=== PATIENT | female | born 1970 | race Caucasian/White ===

== ENCOUNTER 2018-02-25 12:02 | Inpatient (IN) | payer OTHER ==
[2018-02-25] MEDS ORDERED: LOPERAMIDE HCL 2 MG CAPSULE PO PRN (12:15)
[2018-02-25] MEDS ORDERED: MAGNESIUM CITRATE 300 ML BOTTLE PO PRN (12:15)
[2018-02-25] MEDS ORDERED: P-EPHED 60MG/TRIPROLIDI 2.5MG TABLET PO PRN (12:15)
[2018-02-25] MEDS ORDERED: ACETAMINOPHEN 325 MG TABLET (FP) PO PRN (12:15)
[2018-02-25] MEDS ORDERED: NICOTINE 14 MG/24 HOURS TOPICAL PATCH TD PRN (12:15)
[2018-02-25] MEDS ORDERED: MENTHOL/PHENOL 1 EACH UD MM PRN (12:15)
[2018-02-25] MEDS ORDERED: guaiFENesin/D-METHORPHAN HB 10 ML UNIT-DOSE CUPS PO PRN (12:15)
[2018-02-25] MEDS ORDERED: MAG HYDROX/AL HYDROX/SIMETH 30 ML UNIT-DOSE CUP PO PRN (12:15)
[2018-02-25] MEDS ORDERED: MAGNESIUM HYDROX 2400MG/30ML ORAL SUSPENSION 30 ML CUP PO PRN (12:15)
--- NOTE | 2018-02-25 12:15 | HP ---
[facility] Rehab Assess/Revision - Admission History Admitted to Rehab from: [facility] Date of Admission to Rehab: 02/25/18 - Findings Detox History & Physical reviewed: Yes Concur with findings: Yes Comments/Additional Findings: transferred from detox to rehab admission as per protocol Inpatient Rehab Admission - Initial Determination Are CD services needed?: Yes Free of communicable disease: Yes Not in need of hospitalization: Yes - Rehab Admission Criteria Previous failed treatment: Yes Poor recovery environment: Yes Comorbidities: Yes Lacks judgement: No Patient is meeting Inpatient Rehab admission criteria:: Yes
[2018-02-25] MEDS ORDERED: PT OWN MED DRAWER 7, Y5N ONE (14:09)
--- NOTE | 2018-02-25 14:35 | PN ---
[facility] Progress Note Note: Requested by nursing staff to order medication for newly admitted patient from detox. Medication reconciliation done. Lexapro 20 mg po daily, Seroquel 100 mg po HS and Trazadone 100 mg po HS ordered for patient
[2018-02-25] MEDS: THIAMINE HCL 100 MG TABLET (FP) PO SCH (21:53)
[2018-02-25] MEDS: QUEtiapine FUMARATE 100 MG TABLET (FP) PO SCH (21:53)
[2018-02-25] MEDS: IBUPROFEN 400 MG TABLET (FP) PO PRN (21:54)
[2018-02-25] MEDS: traZODone HCL 100 MG TABLET (FP) PO SCH (21:54)
[2018-02-26] MEDS: ALBUTEROL SO4 8 GM HFA INHALER IH PRN (06:41)
[2018-02-26] MEDS ORDERED: PT OWN MED DRAWER 7, Y5N ONE (08:53)
[2018-02-26] MEDS: PRENATAL VITAMINS W/ FOLIC ACID TABLET (FP) PO SCH (09:33)
[2018-02-26] MEDS: ESCITALOPRAM OXALATE 20 MG TABLET (FP) PO SCH (09:33)
[2018-02-26] MEDS: IBUPROFEN 400 MG TABLET (FP) PO PRN ×2 (09:34→21:51)
[2018-02-26] MEDS: PSYLLIUM 5.85 GM PACKET PO PRN (09:35)
--- NOTE | 2018-02-26 10:46 | HP ---
Psychiatrist Admission - Data Date of interview: 02/26/18 Admission source: [address] [place] [address] Identifying data: This is the first admission to [address] [place] [address] for this 48 years old female mother of 6 (kinds are grown,just little kids reside with relatives).Patient is undomiciled,supported by [employer]amps. Medical History: Significant for BA,Colon polyps removal,Tubal ligation 8 yo. Psychiatric History: Patient reports first contact with psychiatrist was about 5 years ago to address depression,anxiety,insomnia,mood instability,drug use.She was seen by psychiatrist in [facility] in [facility].Patient was dx with Mood disorder.She was started on Seroquel 100 mg po hs,Clonazepam 0,5 mg po prn, Lexapro 20 mg po daily,Trileptal 300 mg po bid and Trazodone 100 mg po hs.Patient is still under care of psychiatrist at the same facility. Physical/Sexual Abuse/Trauma History: not willing to discuss Vital Signs: Vital Signs - 24 hr 02/25/18 02/26/18 02/26/18 12:24 00:49 07:09 Temperature 97.5 F L 97.3 F L Pulse Rate 75 81 Respiratory 18 16 16 Rate Blood Pressure 106/75 134/90 Allergies/Adverse Reactions: Allergies Allergy/AdvReac Type Severity Reaction Status Date / Time No Known Allergies Allergy Verified 02/19/18 21:33 Date of last physical exam: 02/19/18 Concur with the findings of this exam: Yes - Substance Abuse/Tx History Hx Alcohol Use: Yes (dinking since 16 yo,2 liter of vodka,beer) Hx Substance Use: Yes (marijuana since 16 yo,crack since 31 yo,$30 daily,heroin since 31 yo,4 bags) Substance Use Type: Alcohol, Cocaine, Heroin, Marijuana Hx Substance Use Treatment: Yes (this is her first inpatient rehab,no clean time ) Mental Status Exam - Mental Status Exam Alert and Oriented to: Time, Place, Person Cognitive Function: Grossly Intact Patient Appearance: Unkempt Mood: Anxious, Irritable Affect: Mood Congruent, Labile Patient Behavior: Restless, Cooperative Speech Pattern: Clear Voice Loudness: Normal Thought Process: Goal Oriented Thought Disorder: Not Present Hallucinations: Denies Suicidal Ideation: Denies Homicidal Ideation: Denies Insight/Judgement: Fair Sleep: Fair Appetite: Fair Muscle strength/Tone: Normal Gait/Station: Normal Psychiatric Findings - Problem List ([place] 1, 2,3) (1) Nicotine dependence Current Visit: Yes Status: Chronic Qualifiers: Nicotine product type: cigarettes Substance use status: in withdrawal Qualified Code(s): F17.213 - Nicotine dependence, cigarettes, with withdrawal (2) Asthma Current Visit: Yes Status: Chronic Qualifiers: Asthma severity: mild Asthma persistence: intermittent Asthma complication type: unspecified Qualified Code(s): J45.20 - Mild intermittent asthma, uncomplicated (3) IBS (irritable bowel syndrome) Current Visit: Yes Status: Chronic (4) Substance induced mood disorder Current Visit: Yes Status: Suspected (5) Substance-induced sleep disorder Current Visit: Yes Status: Suspected (6) Alcohol dependence Current Visit: Yes Status: Chronic (7) Cocaine dependence Current Visit: Yes Status: Chronic (8) Opioid dependence Current Visit: Yes Status: Chronic (9) Cannabis dependence Current Visit: Yes Status: Chronic (10) Bronchial asthma Current Visit: Yes Status: Chronic (11) Bipolar disorder Current Visit: Yes Status: Chronic - Initial Treatment Plan Initial Treatment Plan: Continue current medications.
[2018-02-26] MEDS ORDERED: hydrOXYzine PAMOATE 50 MG CAPSULE (FP) PO PRN (10:58)
[2018-02-26] MEDS ORDERED: hydrOXYzine PAMOATE 50 MG CAPSULE (FP) PO SCH (11:30)
[2018-02-26] MEDS: OXcarbazepine 300 MG TABLET (UD) PO SCH ×2 (12:05→21:52)
[2018-02-26] MEDS: hydrOXYzine PAMOATE 50 MG CAPSULE (FP) PO SCH ×4 (12:05→21:52)
[2018-02-26] MEDS: THIAMINE HCL 100 MG TABLET (FP) PO SCH (21:52)
[2018-02-26] MEDS: QUEtiapine FUMARATE 100 MG TABLET (FP) PO SCH (21:52)
[2018-02-26] MEDS: traZODone HCL 100 MG TABLET (FP) PO SCH (21:52)
[2018-02-26] MEDS: MELATONIN 5 MG TABLETS PO PRN (21:53)
[2018-02-27] MEDS: IBUPROFEN 400 MG TABLET (FP) PO PRN ×2 (10:22→21:53)
[2018-02-27] MEDS: ESCITALOPRAM OXALATE 20 MG TABLET (FP) PO SCH (10:22)
[2018-02-27] MEDS: OXcarbazepine 300 MG TABLET (UD) PO SCH ×2 (10:23→21:51)
[2018-02-27] MEDS: PRENATAL VITAMINS W/ FOLIC ACID TABLET (FP) PO SCH (10:23)
[2018-02-27] MEDS: NICOTINE 14 MG/24 HOURS TOPICAL PATCH TD SCH (10:23)
[2018-02-27] MEDS: PSYLLIUM 5.85 GM PACKET PO PRN (10:24)
[2018-02-27] MEDS: hydrOXYzine PAMOATE 50 MG CAPSULE (FP) PO SCH ×4 (10:24→21:51)
--- NOTE | 2018-02-27 13:53 | PN ---
S Progress Note Note: Vital Signs Temperature 97.7 F 02/27/18 07:21 Pulse Rate 75 02/27/18 07:21 Respiratory Rate 16 02/27/18 07:21 Blood Pressure 113/80 02/27/18 07:21 O2 Sat by Pulse Oximetry (%) Patient reports hx of BS with chronic constipation, requested Citroma QD along with myralax to which assist with moving her bowels. Patient Aox3, no distress, anxious no adventitious breath sounds bs x4 non-tender non-distended full rom ambulating in the unit chronic constipation d/c citroma lactulose prn colace tid increase fiber continue to monitor
[2018-02-27] MEDS: COLLOIDAL OATMEAL 1 BAR EACH TP PRN (14:06)
[2018-02-27] MEDS: DOCUSATE SODIUM 100 MG CAPSULE (FP) PO SCH ×2 (14:06→21:52)
[2018-02-27] MEDS: LACTULOSE 20 GM/30 ML UDC (FOR ORAL USE ONLY) PO PRN ×2 (14:06→19:06)
[2018-02-27] MEDS: THIAMINE HCL 100 MG TABLET (FP) PO SCH (21:51)
[2018-02-27] MEDS: traZODone HCL 100 MG TABLET (FP) PO SCH (21:52)
[2018-02-27] MEDS: QUEtiapine FUMARATE 100 MG TABLET (FP) PO SCH (21:52)
[2018-02-27] MEDS: MELATONIN 5 MG TABLETS PO PRN (21:52)
[2018-02-28] MEDS: DOCUSATE SODIUM 100 MG CAPSULE (FP) PO SCH ×3 (06:21→21:46)
[2018-02-28] MEDS: LACTULOSE 20 GM/30 ML UDC (FOR ORAL USE ONLY) PO PRN ×3 (06:22→22:24)
[2018-02-28] MEDS: NICOTINE 14 MG/24 HOURS TOPICAL PATCH TD SCH (10:39)
[2018-02-28] MEDS: PRENATAL VITAMINS W/ FOLIC ACID TABLET (FP) PO SCH (10:40)
[2018-02-28] MEDS: PSYLLIUM 5.85 GM PACKET PO PRN ×2 (10:40→21:49)
[2018-02-28] MEDS: OXcarbazepine 300 MG TABLET (UD) PO SCH ×2 (10:41→21:46)
[2018-02-28] MEDS: ESCITALOPRAM OXALATE 20 MG TABLET (FP) PO SCH (10:41)
[2018-02-28] MEDS: hydrOXYzine PAMOATE 50 MG CAPSULE (FP) PO SCH ×4 (10:41→21:46)
[2018-02-28] MEDS: IBUPROFEN 400 MG TABLET (FP) PO PRN ×2 (10:43→21:48)
[2018-02-28] MEDS: THIAMINE HCL 100 MG TABLET (FP) PO SCH (21:46)
[2018-02-28] MEDS: traZODone HCL 100 MG TABLET (FP) PO SCH (21:46)
[2018-02-28] MEDS: QUEtiapine FUMARATE 100 MG TABLET (FP) PO SCH (21:48)
[2018-02-28] MEDS: MELATONIN 5 MG TABLETS PO PRN (21:48)
[2018-03-01] MEDS: DOCUSATE SODIUM 100 MG CAPSULE (FP) PO SCH ×3 (06:51→21:30)
[2018-03-01] MEDS: NICOTINE 14 MG/24 HOURS TOPICAL PATCH TD SCH (09:55)
[2018-03-01] MEDS: hydrOXYzine PAMOATE 50 MG CAPSULE (FP) PO SCH ×4 (09:56→21:29)
[2018-03-01] MEDS: ESCITALOPRAM OXALATE 20 MG TABLET (FP) PO SCH (09:56)
[2018-03-01] MEDS: PSYLLIUM 5.85 GM PACKET PO PRN ×2 (09:56→17:15)
[2018-03-01] MEDS: PRENATAL VITAMINS W/ FOLIC ACID TABLET (FP) PO SCH (09:56)
[2018-03-01] MEDS: OXcarbazepine 300 MG TABLET (UD) PO SCH ×2 (09:56→21:31)
[2018-03-01] MEDS: LACTULOSE 20 GM/30 ML UDC (FOR ORAL USE ONLY) PO PRN ×2 (09:59→17:13)
[2018-03-01] MEDS: IBUPROFEN 400 MG TABLET (FP) PO PRN ×2 (13:46→21:30)
[2018-03-01] MEDS: NICOTINE POLACRILEX 2 MG GUM BUC PRN (18:03)
[2018-03-01] MEDS: QUEtiapine FUMARATE 100 MG TABLET (FP) PO SCH (21:30)
[2018-03-01] MEDS: traZODone HCL 100 MG TABLET (FP) PO SCH (21:30)
[2018-03-01] MEDS: THIAMINE HCL 100 MG TABLET (FP) PO SCH (21:32)
[2018-03-02] MEDS: DOCUSATE SODIUM 100 MG CAPSULE (FP) PO SCH ×3 (06:35→21:45)
[2018-03-02] MEDS: ALBUTEROL SO4 8 GM HFA INHALER IH PRN (06:44)
[2018-03-02] MEDS: PRENATAL VITAMINS W/ FOLIC ACID TABLET (FP) PO SCH (10:08)
[2018-03-02] MEDS: OXcarbazepine 300 MG TABLET (UD) PO SCH ×2 (10:08→21:46)
[2018-03-02] MEDS: ESCITALOPRAM OXALATE 20 MG TABLET (FP) PO SCH (10:08)
[2018-03-02] MEDS: hydrOXYzine PAMOATE 50 MG CAPSULE (FP) PO SCH ×4 (10:08→21:45)
[2018-03-02] MEDS: NICOTINE 14 MG/24 HOURS TOPICAL PATCH TD SCH (10:08)
[2018-03-02] MEDS: LACTULOSE 20 GM/30 ML UDC (FOR ORAL USE ONLY) PO PRN ×2 (10:10→17:48)
[2018-03-02] MEDS: PSYLLIUM 5.85 GM PACKET PO PRN ×2 (10:10→17:49)
[2018-03-02] MEDS: IBUPROFEN 400 MG TABLET (FP) PO PRN ×2 (10:11→17:48)
--- NOTE | 2018-03-02 13:46 | PN ---
S Progress Note (SOAP) Subjective: c/o foul smelling vaginal discharge started about 3 days ago. Vaginal area is itchy. C/o chronic constipation and requesting citrate of magnesium. States hit toe a few days ago and now notices a spot on toe. Objective: Abd S/NT/BS+. Denies burning upon urination. Vital Signs 03/02/18 07:31 Temperature 97.4 F L Pulse Rate 64 Respiratory 18 Rate Blood Pressure 121/84 Brownish area on (R) great toe, oval 2.5 cm x 8 mm. Looks like results of pinched skin. No open area. Assessment: Constipation Bacterial vaginitis Bruise (R) great toe. Plan: Citrate magnesium Monistst Vag supp Continue rehab
[2018-03-02] MEDS: NICOTINE POLACRILEX 2 MG GUM BUC PRN (13:55)
[2018-03-02] MEDS: MAGNESIUM CITRATE 300 ML BOTTLE PO PRN (15:07)
[2018-03-02] MEDS: traZODone HCL 100 MG TABLET (FP) PO SCH (21:45)
[2018-03-02] MEDS: MELATONIN 5 MG TABLETS PO PRN (21:45)
[2018-03-02] MEDS: THIAMINE HCL 100 MG TABLET (FP) PO SCH (21:45)
[2018-03-02] MEDS: QUEtiapine FUMARATE 100 MG TABLET (FP) PO SCH (21:46)
[2018-03-02] MEDS: MICONAZOLE NITRATE 2% VAGINAL CREAM 45 GM TUBE VG SCH (21:48)
[2018-03-03] MEDS: DOCUSATE SODIUM 100 MG CAPSULE (FP) PO SCH ×3 (06:37→21:38)
[2018-03-03] MEDS: LACTULOSE 20 GM/30 ML UDC (FOR ORAL USE ONLY) PO PRN ×3 (06:37→21:37)
[2018-03-03] MEDS: PSYLLIUM 5.85 GM PACKET PO PRN ×3 (06:40→21:38)
[2018-03-03] MEDS: ESCITALOPRAM OXALATE 20 MG TABLET (FP) PO SCH (10:28)
[2018-03-03] MEDS: NICOTINE 14 MG/24 HOURS TOPICAL PATCH TD SCH (10:28)
[2018-03-03] MEDS: PRENATAL VITAMINS W/ FOLIC ACID TABLET (FP) PO SCH (10:29)
[2018-03-03] MEDS: hydrOXYzine PAMOATE 50 MG CAPSULE (FP) PO SCH ×4 (10:29→21:45)
[2018-03-03] MEDS: OXcarbazepine 300 MG TABLET (UD) PO SCH ×2 (10:29→21:37)
[2018-03-03] MEDS: IBUPROFEN 400 MG TABLET (FP) PO PRN ×2 (10:31→21:43)
[2018-03-03] MEDS: NICOTINE POLACRILEX 2 MG GUM BUC PRN ×3 (10:33→18:13)
[2018-03-03] MEDS: ALBUTEROL SO4 8 GM HFA INHALER IH PRN (10:33)
[2018-03-03] MEDS: traZODone HCL 100 MG TABLET (FP) PO SCH (21:37)
[2018-03-03] MEDS: QUEtiapine FUMARATE 100 MG TABLET (FP) PO SCH (21:38)
[2018-03-03] MEDS: THIAMINE HCL 100 MG TABLET (FP) PO SCH (21:38)
[2018-03-03] MEDS: COLLOIDAL OATMEAL 1 BAR EACH TP PRN (21:40)
[2018-03-03] MEDS: MICONAZOLE NITRATE 2% VAGINAL CREAM 45 GM TUBE VG SCH (21:41)
[2018-03-03] MEDS: MELATONIN 5 MG TABLETS PO PRN (21:41)
[2018-03-03] MEDS ORDERED: PT OWN MED DRAWER 7, Y5N ONE (21:43)
[2018-03-04] MEDS: DOCUSATE SODIUM 100 MG CAPSULE (FP) PO SCH ×3 (06:25→21:37)
[2018-03-04] MEDS: ALBUTEROL SO4 8 GM HFA INHALER IH PRN ×2 (06:26→14:58)
[2018-03-04] MEDS ORDERED: PT OWN MED DRAWER 7, Y5N ONE ×2 (06:26→23:17)
[2018-03-04] MEDS: PSYLLIUM 5.85 GM PACKET PO PRN (10:07)
[2018-03-04] MEDS: LACTULOSE 20 GM/30 ML UDC (FOR ORAL USE ONLY) PO PRN (10:07)
[2018-03-04] MEDS: ESCITALOPRAM OXALATE 20 MG TABLET (FP) PO SCH (10:08)
[2018-03-04] MEDS: OXcarbazepine 300 MG TABLET (UD) PO SCH ×2 (10:08→21:38)
[2018-03-04] MEDS: NICOTINE 14 MG/24 HOURS TOPICAL PATCH TD SCH (10:08)
[2018-03-04] MEDS: hydrOXYzine PAMOATE 50 MG CAPSULE (FP) PO SCH ×4 (10:08→21:38)
[2018-03-04] MEDS: PRENATAL VITAMINS W/ FOLIC ACID TABLET (FP) PO SCH (10:09)
[2018-03-04] MEDS: NICOTINE POLACRILEX 2 MG GUM BUC PRN ×3 (10:10→21:40)
--- NOTE | 2018-03-04 14:21 | PN ---
[facility] Progress Note Note: PATIENT SEEN FOR C/O LEFT SHOULDER DISCOMFORT. CHRONIC DUE TO OLD SPRAIN. PATIENT HAS FULL ROM OF LEFT ARM. +TACTILE TENDERNESS. NO SWELLING OR REDNESS NOTED. A/P: LEFT SHOULDER DISCOMFORT: WILL ORDER LIDOCAINE PATCH DAILY AND CONTINUE TO MONITOR CLINICALLY. Vital Signs Temperature 97.6 F 03/04/18 06:45 Pulse Rate 61 03/04/18 06:45 Respiratory Rate 18 03/04/18 06:45 Blood Pressure 101/68 03/04/18 06:45 O2 Sat by Pulse Oximetry (%)
[2018-03-04] MEDS: LIDOCAINE 5% TOPICAL PATCH TP SCH (14:33)
[2018-03-04] MEDS: MAGNESIUM CITRATE 300 ML BOTTLE PO PRN (17:48)
[2018-03-04] MEDS: IBUPROFEN 400 MG TABLET (FP) PO PRN (17:49)
[2018-03-04] MEDS: THIAMINE HCL 100 MG TABLET (FP) PO SCH (21:37)
[2018-03-04] MEDS: traZODone HCL 100 MG TABLET (FP) PO SCH (21:37)
[2018-03-04] MEDS: QUEtiapine FUMARATE 100 MG TABLET (FP) PO SCH (21:37)
[2018-03-04] MEDS: MICONAZOLE NITRATE 2% VAGINAL CREAM 45 GM TUBE VG SCH (21:38)
[2018-03-04] MEDS: LIDOCAINE PATCH REMOVAL MC SCH (21:38)
[2018-03-04] MEDS: MELATONIN 5 MG TABLETS PO PRN (21:39)
[2018-03-05] MEDS: DOCUSATE SODIUM 100 MG CAPSULE (FP) PO SCH ×3 (06:52→21:31)
[2018-03-05] MEDS: ALBUTEROL SO4 8 GM HFA INHALER IH PRN (06:52)
[2018-03-05] MEDS: LIDOCAINE 5% TOPICAL PATCH TP SCH (10:09)
[2018-03-05] MEDS: OXcarbazepine 300 MG TABLET (UD) PO SCH ×2 (10:09→21:33)
[2018-03-05] MEDS: ESCITALOPRAM OXALATE 20 MG TABLET (FP) PO SCH (10:09)
[2018-03-05] MEDS: NICOTINE 14 MG/24 HOURS TOPICAL PATCH TD SCH (10:09)
[2018-03-05] MEDS: hydrOXYzine PAMOATE 50 MG CAPSULE (FP) PO SCH ×4 (10:09→21:33)
[2018-03-05] MEDS: PRENATAL VITAMINS W/ FOLIC ACID TABLET (FP) PO SCH (10:09)
[2018-03-05] MEDS: PSYLLIUM 5.85 GM PACKET PO PRN ×2 (10:12→21:33)
[2018-03-05] MEDS: NICOTINE POLACRILEX 2 MG GUM BUC PRN ×4 (10:12→21:34)
[2018-03-05] MEDS: IBUPROFEN 400 MG TABLET (FP) PO PRN (10:13)
[2018-03-05] MEDS: LACTULOSE 20 GM/30 ML UDC (FOR ORAL USE ONLY) PO PRN ×2 (10:13→21:33)
--- NOTE | 2018-03-05 16:16 | PN ---
S Progress Note Note: Vital Signs Temperature 97.6 F 03/05/18 07:30 Pulse Rate 60 03/05/18 07:30 Respiratory Rate 18 03/05/18 07:30 Blood Pressure 125/84 03/05/18 07:30 O2 Sat by Pulse Oximetry (%) Patient reports she cut her left big toe while shaving. Patient denies any pain. Patient Aox3 no distress no adventitious breath sounds full ROM + superficial abrasions 1cm x 1 cm on the left big toe, no drainage present abrasion TP bacitracin keep area clean and dry continue to monitor
[2018-03-05] MEDS ORDERED: BACITRACIN 0.9 GM PACKET TP ONE (17:15)
[2018-03-05] MEDS ORDERED: PT OWN MED DRAWER 7, Y5N ONE ×2 (18:37→22:53)
[2018-03-05] MEDS: QUEtiapine FUMARATE 100 MG TABLET (FP) PO SCH (21:32)
[2018-03-05] MEDS: MICONAZOLE NITRATE 2% VAGINAL CREAM 45 GM TUBE VG SCH (21:32)
[2018-03-05] MEDS: LIDOCAINE PATCH REMOVAL MC SCH (21:32)
[2018-03-05] MEDS: traZODone HCL 100 MG TABLET (FP) PO SCH (21:32)
[2018-03-05] MEDS: THIAMINE HCL 100 MG TABLET (FP) PO SCH (21:33)
[2018-03-06] MEDS: DOCUSATE SODIUM 100 MG CAPSULE (FP) PO SCH ×3 (06:50→21:31)
[2018-03-06] MEDS: ALBUTEROL SO4 8 GM HFA INHALER IH PRN (06:51)
[2018-03-06] MEDS: NICOTINE 14 MG/24 HOURS TOPICAL PATCH TD SCH (10:00)
[2018-03-06] MEDS: LIDOCAINE 5% TOPICAL PATCH TP SCH (10:00)
[2018-03-06] MEDS: PRENATAL VITAMINS W/ FOLIC ACID TABLET (FP) PO SCH (10:00)
[2018-03-06] MEDS: ESCITALOPRAM OXALATE 20 MG TABLET (FP) PO SCH (10:00)
[2018-03-06] MEDS: OXcarbazepine 300 MG TABLET (UD) PO SCH ×2 (10:01→21:30)
[2018-03-06] MEDS: hydrOXYzine PAMOATE 50 MG CAPSULE (FP) PO SCH ×4 (10:01→21:30)
[2018-03-06] MEDS: IBUPROFEN 400 MG TABLET (FP) PO PRN ×2 (10:01→17:56)
[2018-03-06] MEDS: LACTULOSE 20 GM/30 ML UDC (FOR ORAL USE ONLY) PO PRN ×2 (10:02→21:31)
[2018-03-06] MEDS: PSYLLIUM 5.85 GM PACKET PO PRN (10:02)
[2018-03-06] MEDS: NICOTINE POLACRILEX 2 MG GUM BUC PRN ×3 (10:03→21:30)
[2018-03-06] MEDS: QUEtiapine FUMARATE 100 MG TABLET (FP) PO SCH (21:31)
[2018-03-06] MEDS: traZODone HCL 100 MG TABLET (FP) PO SCH (21:31)
[2018-03-06] MEDS: THIAMINE HCL 100 MG TABLET (FP) PO SCH (21:31)
[2018-03-06] MEDS: LIDOCAINE PATCH REMOVAL MC SCH (21:31)
[2018-03-06] MEDS: MICONAZOLE NITRATE 2% VAGINAL CREAM 45 GM TUBE VG SCH (21:34)
[2018-03-06] MEDS ORDERED: PT OWN MED DRAWER 7, Y5N ONE (21:35)
[2018-03-06] MEDS: COLLOIDAL OATMEAL 1 BAR EACH TP PRN (21:43)
[2018-03-07] MEDS: DOCUSATE SODIUM 100 MG CAPSULE (FP) PO SCH ×3 (06:35→21:40)
[2018-03-07] MEDS: PRENATAL VITAMINS W/ FOLIC ACID TABLET (FP) PO SCH (10:01)
[2018-03-07] MEDS: hydrOXYzine PAMOATE 50 MG CAPSULE (FP) PO SCH ×4 (10:07→21:39)
[2018-03-07] MEDS: OXcarbazepine 300 MG TABLET (UD) PO SCH ×2 (10:07→21:39)
[2018-03-07] MEDS: ESCITALOPRAM OXALATE 20 MG TABLET (FP) PO SCH (10:07)
[2018-03-07] MEDS: NICOTINE 14 MG/24 HOURS TOPICAL PATCH TD SCH (10:08)
[2018-03-07] MEDS: LIDOCAINE 5% TOPICAL PATCH TP SCH (10:08)
[2018-03-07] MEDS: IBUPROFEN 400 MG TABLET (FP) PO PRN ×2 (10:09→21:39)
[2018-03-07] MEDS: NICOTINE POLACRILEX 2 MG GUM BUC PRN ×2 (10:13→17:04)
[2018-03-07] MEDS: LACTULOSE 20 GM/30 ML UDC (FOR ORAL USE ONLY) PO PRN ×2 (12:04→17:03)
[2018-03-07] MEDS: PSYLLIUM 5.85 GM PACKET PO PRN ×2 (12:06→17:06)
[2018-03-07] MEDS: ALBUTEROL SO4 8 GM HFA INHALER IH PRN (17:07)
[2018-03-07] MEDS ORDERED: PT OWN MED DRAWER 7, Y5N ONE (21:35)
[2018-03-07] MEDS: QUEtiapine FUMARATE 100 MG TABLET (FP) PO SCH (21:39)
[2018-03-07] MEDS: traZODone HCL 100 MG TABLET (FP) PO SCH (21:39)
[2018-03-07] MEDS: MICONAZOLE NITRATE 2% VAGINAL CREAM 45 GM TUBE VG SCH (21:39)
[2018-03-07] MEDS: MELATONIN 5 MG TABLETS PO PRN (21:40)
[2018-03-07] MEDS: LIDOCAINE PATCH REMOVAL MC SCH (21:40)
[2018-03-07] MEDS: THIAMINE HCL 100 MG TABLET (FP) PO SCH (21:40)
[2018-03-08] MEDS: DOCUSATE SODIUM 100 MG CAPSULE (FP) PO SCH ×3 (06:56→21:10)
[2018-03-08] MEDS: OXcarbazepine 300 MG TABLET (UD) PO SCH ×2 (10:12→21:10)
[2018-03-08] MEDS: PRENATAL VITAMINS W/ FOLIC ACID TABLET (FP) PO SCH (10:12)
[2018-03-08] MEDS: ESCITALOPRAM OXALATE 20 MG TABLET (FP) PO SCH (10:12)
[2018-03-08] MEDS: LIDOCAINE 5% TOPICAL PATCH TP SCH (10:12)
[2018-03-08] MEDS: hydrOXYzine PAMOATE 50 MG CAPSULE (FP) PO SCH ×4 (10:12→21:10)
[2018-03-08] MEDS: NICOTINE 14 MG/24 HOURS TOPICAL PATCH TD SCH (10:12)
[2018-03-08] MEDS: IBUPROFEN 400 MG TABLET (FP) PO PRN ×2 (10:13→17:41)
[2018-03-08] MEDS: LACTULOSE 20 GM/30 ML UDC (FOR ORAL USE ONLY) PO PRN ×2 (10:15→17:41)
[2018-03-08] MEDS: ALBUTEROL SO4 8 GM HFA INHALER IH PRN ×2 (10:16→21:12)
[2018-03-08] MEDS: PSYLLIUM 5.85 GM PACKET PO PRN ×2 (10:16→13:47)
[2018-03-08] MEDS: traZODone HCL 100 MG TABLET (FP) PO SCH (21:10)
[2018-03-08] MEDS: MELATONIN 5 MG TABLETS PO PRN (21:10)
[2018-03-08] MEDS: THIAMINE HCL 100 MG TABLET (FP) PO SCH (21:10)
[2018-03-08] MEDS: QUEtiapine FUMARATE 100 MG TABLET (FP) PO SCH (21:10)
[2018-03-08] MEDS: LIDOCAINE PATCH REMOVAL MC SCH (21:12)
[2018-03-08] MEDS: MICONAZOLE NITRATE 2% VAGINAL CREAM 45 GM TUBE VG SCH (21:12)
[2018-03-09] MEDS: DOCUSATE SODIUM 100 MG CAPSULE (FP) PO SCH ×3 (06:28→22:40)
[2018-03-09 07:33] VITALS: TEMP 97.8
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
[2018-03-09] MEDS: ESCITALOPRAM OXALATE 20 MG TABLET (FP) PO SCH (10:43)
[2018-03-09] MEDS: LIDOCAINE 5% TOPICAL PATCH TP SCH (10:43)
[2018-03-09] MEDS: PRENATAL VITAMINS W/ FOLIC ACID TABLET (FP) PO SCH (10:43)
[2018-03-09] MEDS: NICOTINE 14 MG/24 HOURS TOPICAL PATCH TD SCH (10:43)
[2018-03-09] MEDS: hydrOXYzine PAMOATE 50 MG CAPSULE (FP) PO SCH ×4 (10:43→21:22)
[2018-03-09] MEDS: OXcarbazepine 300 MG TABLET (UD) PO SCH ×2 (10:43→21:22)
[2018-03-09] MEDS: LACTULOSE 20 GM/30 ML UDC (FOR ORAL USE ONLY) PO PRN ×2 (10:47→21:22)
[2018-03-09] MEDS: IBUPROFEN 400 MG TABLET (FP) PO PRN ×2 (10:47→21:24)
[2018-03-09] MEDS: PSYLLIUM 5.85 GM PACKET PO PRN (10:49)
[2018-03-09] MEDS ORDERED: PT OWN MED DRAWER 7, Y5N ONE (16:07)
[2018-03-09] MEDS: ALBUTEROL SO4 8 GM HFA INHALER IH PRN (16:07)
[2018-03-09] MEDS: QUEtiapine FUMARATE 100 MG TABLET (FP) PO SCH (21:22)
[2018-03-09] MEDS: traZODone HCL 100 MG TABLET (FP) PO SCH (21:22)
[2018-03-09] MEDS: THIAMINE HCL 100 MG TABLET (FP) PO SCH (21:22)
[2018-03-09] MEDS: MELATONIN 5 MG TABLETS PO PRN (21:22)
[2018-03-09] MEDS: LIDOCAINE PATCH REMOVAL MC SCH (21:25)
[2018-03-10] MEDS ORDERED: PT OWN MED DRAWER 7, Y5N ONE (03:16)
[2018-03-10] MEDS: DOCUSATE SODIUM 100 MG CAPSULE (FP) PO SCH (06:41)
[2018-03-10] MEDS: IBUPROFEN 400 MG TABLET (FP) PO PRN (06:41)
[2018-03-10 07:03] VITALS: BP 133/93; PULSE 76
--- NOTE | 2018-03-10 09:39 | PN ---
[facility] Progress Note Note: Patient completed this program today.she has met her treatment goals and will continue to address her issues on outpatient basis.Patient will continue current medications as per plan.Scripts provided for 30 dqys.Patient is stable for discharge today.
== END 2018-03-10 06:50 | disposition home or self-care (01) | DRG 772 ==
LOC: YASAS 12:02 → Y3E 12:03
PROVIDERS: ADMIT Psychiatry & Neurology Psychiatry; ATTEND Psychiatry & Neurology Psychiatry
PROC: HZ42ZZZ Group Counseling for Substance Abuse Treatment, Cognitive-Behavioral (ICD-10-PCS; principal; 2018-02-25)
DX: F11.20 Opioid dependence, uncomplicated (principal); F10.20 Alcohol dependence, uncomplicated; F14.20 Cocaine dependence, uncomplicated; F12.20 Cannabis dependence, uncomplicated; F17.213 Nicotine dependence, cigarettes, with withdrawal; F31.9 Bipolar disorder, unspecified; F19.282 Other psychoactive substance dependence with psychoactive substance-induced sleep disorder; F19.24 Other psychoactive substance dependence with psychoactive substance-induced mood disorder; J45.909 Unspecified asthma, uncomplicated; K58.9 Irritable bowel syndrome, unspecified; M25.512 Pain in left shoulder; N76.0 Acute vaginitis; B96.89 Other specified bacterial agents as the cause of diseases classified elsewhere; S90.412A Abrasion, left great toe, initial encounter; W27.8XXA Contact with other nonpowered hand tool, initial encounter; Y93.E8 Activity, other personal hygiene; Y92.238 Other place in hospital as the place of occurrence of the external cause; Y99.8 Other external cause status; Z59.0 Homelessness
CPT/HCPCS: 36415; 87389